=== PATIENT | male | born 1970 | race Caucasian/White ===

== ENCOUNTER 2016-11-23 23:59 | Emergency (ER) | payer MEDICAID, OTHER ==
[~2016-11-23] VITALS: Ht 170.2 cm; Wt 68.2 kg
[2016-11-24 00:54] LABS: HEMATOCRIT 48.7 % (39.2-51.8); HEMOGLOBIN 16.5 g/dL (13.7-18.0); WHITE BLOOD COUNT 6.2 x10^3/uL (3.4-10)
[2016-11-24] MEDS ORDERED: SODIUM CHLORIDE 0.9% 1,000ML IVBOLUS ONE (01:00)
[2016-11-24] MEDS ORDERED: SODIUM CHLORIDE FLUSH 10ML SYR IVF ONE (01:00)
[2016-11-24] MEDS ORDERED: MORPHINE SULFATE 4 MG/ML, 1ML IVPush PRN (01:00)
[2016-11-24] MEDS ORDERED: ONDANSETRON 2MG/ML, 2ML IVPush ONE (01:00)
[2016-11-24 01:04] LABS: ASPARTATE AMINO TRANSFERASE 53 U/L (15-37); BLOOD UREA NITROGEN 6 mg/dL (7-18)
[2016-11-24] MEDS ORDERED: MORPHINE SULFATE 4 MG/ML, 1ML ONE (01:13)
[2016-11-24] MEDS ORDERED: ONDANSETRON 2MG/ML, 2ML ONE (01:13)
[2016-11-24 01:19] VITALS: BP 138/89
[2016-11-24] MEDS ORDERED: OMNIPAQUE 350 MG/ML, 100ML BOTTLE ONE (01:33)
== END 2016-11-24 03:00 | disposition home or self-care (01) ==
LOC: ED 23:59
DX: K59.00 Constipation, unspecified (principal); K29.20 Alcoholic gastritis without bleeding; F17.210 Nicotine dependence, cigarettes, uncomplicated; K70.10 Alcoholic hepatitis without ascites; K76.0 Fatty (change of) liver, not elsewhere classified; F10.20 Alcohol dependence, uncomplicated; I10 Essential (primary) hypertension
CPT/HCPCS: 36415; 71010; 74177; 80053; 80307; 81001; 83690; 85025; 96361; 96374; 96375; 99285; J2405; J7030; Q9967

== ENCOUNTER 2017-04-03 13:14 | Emergency (ER) | payer MEDICAID, OTHER ==
[~2017-04-03] VITALS: Ht 167.6 cm; Wt 69.1 kg
[2017-04-03 13:18] VITALS: BP 149/88
[2017-04-03] MEDS ORDERED: KETOROLAC 30 MG/1 ML ONE (14:18)
[2017-04-03] MEDS ORDERED: KETOROLAC 30 MG/1 ML IM ONE (14:30)
[2017-04-03] MEDS ORDERED: DIAZEPAM 5 MG TABLET ONE (14:58)
[2017-04-03] MEDS ORDERED: DIAZEPAM 5 MG TABLET PO ONE (15:00)
== END 2017-04-03 15:33 | disposition home or self-care (01) ==
LOC: ED 14:00
DX: S46.811A Strain of other muscles, fascia and tendons at shoulder and upper arm level, right arm, initial encounter (principal); S16.1XXA Strain of muscle, fascia and tendon at neck level, initial encounter; M75.91 Shoulder lesion, unspecified, right shoulder; X58.XXXA Exposure to other specified factors, initial encounter; Y93.89 Activity, other specified; Y92.89 Other specified places as the place of occurrence of the external cause; Y99.8 Other external cause status
CPT/HCPCS: 72125; 73030; 93005; 96372; 99284; J1885

== ENCOUNTER 2017-06-13 13:46 | Emergency (ER) | payer MEDICAID ==
[~2017-06-13] VITALS: Ht 160 cm; Wt 69.0 kg
[~2017-06-13 13:46] MED LIST: NAPR250T6 PO
[2017-06-13 14:57] LABS: BASOPHILS # (AUTO) 0.03 x10^3/uL (0-0.1); BASOPHILS % (AUTO) 1 % (0-1); EOSINOPHILS # (AUTO) 0.01 x10^3/uL (0-0.4); EOSINOPHILS % (AUTO) 0 % (1-7); LYMPHOCYTES # (AUTO) 2.35 x10^3/uL (1-3.4); LYMPHOCYTES % (AUTO) 34 % (22-44); MD NO; MEAN CORPUSCULAR HEMOGLOBIN 28.1 pg (27.5-34.5); MEAN CORPUSCULAR HGB CONC 33.8 g/dL (33.2-36.2); MEAN CORPUSCULAR VOLUME 83.2 fL (81-97); MEAN PLATELET VOLUME 10.2 fL (7.4-10.4); MONOCYTES # (AUTO) 0.43 x10^3/uL (0.2-0.8); MONOCYTES % (AUTO) 6 % (2-9); NEUTROPHILS # (AUTO) 4.05 x10^3/uL (1.8-6.8); NEUTROPHILS % (AUTO) 59 % (42-75); PLATELET COUNT 121 x10^3/uL (130-400); RED BLOOD COUNT 5.69 x10^6/uL (4.38-5.82); RED CELL DISTRIBUTION WIDTH 12.3 % (9.4-14.8)
[2017-06-13 15:08] LABS: ANION GAP 13 mmol/L (5-15); CALCIUM 8.5 mg/dL (8.5-10.1); CHLORIDE 100 mmol/L (98-107)
[2017-06-13 15:11] LABS: ALANINE AMINOTRANSFERASE 69 U/L (12-78); ALKALINE PHOSPHATASE 91 U/L (45-117); BILIRUBIN,TOTAL 1.1 mg/dL (0.2-1.0); CREATININE 0.94 mg/dL (0.7-1.3); TOTAL PROTEIN 7.9 g/dL (6.4-8.2)
[2017-06-13] MEDS ORDERED: THIAMINE 100MG TABLET PO ONE (16:00)
[2017-06-13] MEDS ORDERED: FAMOTIDINE 20 MG/2 ML IVP ONE (16:00)
[2017-06-13] MEDS ORDERED: MAALOX/HYOSCYAMINE/LIDOCAINE 45 ML BTL PO ONE (16:00)
[2017-06-13] MEDS ORDERED: SODIUM CHLORIDE 0.9% 1,000ML IVBOLUS ONE (16:00)
[2017-06-13] MEDS ORDERED: SODIUM CHLORIDE FLUSH 10ML SYR IVF ONE (16:00)
[2017-06-13 16:06] LABS: MICROSCOPIC AUTO
[2017-06-13] MEDS ORDERED: FAMOTIDINE 20 MG/2 ML ONE (16:08)
[2017-06-13] MEDS ORDERED: THIAMINE 100MG TABLET ONE (16:08)
[2017-06-13] MEDS ORDERED: MAALOX/HYOSCYAMINE/LIDOCAINE 45 ML BTL ONE (16:08)
[2017-06-13 16:13] LABS: CULTURE INDICATED? YES
[2017-06-13 18:28] VITALS: BP 145/89
[2017-06-13] MEDS ORDERED: ONDANSETRON ODT 4 MG ONE (18:31)
[2017-06-13] MEDS ORDERED: ONDANSETRON ODT 4 MG PO ONE (19:00)
== END 2017-06-13 18:53 | disposition home or self-care (01) ==
LOC: ED 16:52
DX: K86.0 Alcohol-induced chronic pancreatitis (principal); E11.65 Type 2 diabetes mellitus with hyperglycemia; F10.229 Alcohol dependence with intoxication, unspecified; I10 Essential (primary) hypertension; F17.200 Nicotine dependence, unspecified, uncomplicated; Z91.14 Patient's other noncompliance with medication regimen
CPT/HCPCS: 36415; 80053; 81001; 83690; 85025; 87086; 93005; 96374; 99285; J7030; Q0162; S0028

== ENCOUNTER 2017-12-28 06:20 | Emergency (ER) | payer MEDICAID ==
[~2017-12-28] VITALS: Ht 157.5 cm; Wt 76.4 kg
[2017-12-28 06:27] VITALS: BP 134/91
== END 2017-12-28 06:41 | disposition home or self-care (01) ==
LOC: ED 06:30
DX: T63.441A Toxic effect of venom of bees, accidental (unintentional), initial encounter (principal); E11.9 Type 2 diabetes mellitus without complications; F17.200 Nicotine dependence, unspecified, uncomplicated
CPT/HCPCS: 99283

== ENCOUNTER 2018-01-13 05:13 | Emergency (ER) | payer MEDICAID ==
[~2018-01-13] VITALS: Ht 165.1 cm; Wt 61.0 kg
[2018-01-13] MEDS ORDERED: ONDANSETRON 2MG/ML, 2ML ONE (05:57)
[2018-01-13] MEDS ORDERED: MORPHINE SULFATE 4 MG/ML, 1ML ONE (05:58)
[2018-01-13] MEDS ORDERED: ONDANSETRON 2MG/ML, 2ML IVPush ONE (06:00)
[2018-01-13] MEDS ORDERED: MORPHINE SULFATE 4 MG/ML, 1ML IVPush PRN (06:00)
[2018-01-13] MEDS ORDERED: SODIUM CHLORIDE FLUSH 10ML SYR IVF ONE (06:00)
[2018-01-13 06:01] LABS: BASOPHILS # (AUTO) 0.07 x10^3/uL (0-0.1); BASOPHILS % (AUTO) 1 % (0-1); EOSINOPHILS # (AUTO) 0.01 x10^3/uL (0-0.4); EOSINOPHILS % (AUTO) 0 % (1-7); LYMPHOCYTES # (AUTO) 0.98 x10^3/uL (1-3.4); LYMPHOCYTES % (AUTO) 14 % (22-44); MD NO; MEAN CORPUSCULAR HEMOGLOBIN 30.9 pg (27.5-34.5); MEAN CORPUSCULAR HGB CONC 33.7 g/dL (33.2-36.2); MEAN CORPUSCULAR VOLUME 91.8 fL (81-97); MEAN PLATELET VOLUME 10.9 fL (7.4-10.4); MONOCYTES # (AUTO) 0.54 x10^3/uL (0.2-0.8); MONOCYTES % (AUTO) 8 % (2-9); NEUTROPHILS # (AUTO) 5.64 x10^3/uL (1.8-6.8); NEUTROPHILS % (AUTO) 78 % (42-75); PLATELET COUNT 117 x10^3/uL (130-400); RED CELL DISTRIBUTION WIDTH 12.6 % (9.4-14.8)
[2018-01-13 06:13] LABS: ALBUMIN 3.3 g/dL (3.4-5.0); ANION GAP 10 mmol/L (5-15); CALCIUM 8.9 mg/dL (8.5-10.1); CHLORIDE 104 mmol/L (98-107); CREATININE 0.62 mg/dL (0.7-1.3)
[2018-01-13 06:14] LABS: MICROSCOPIC INDICATED
[2018-01-13 06:15] LABS: CULTURE INDICATED? YES
[2018-01-13] MEDS ORDERED: OMNIPAQUE 350 MG/ML, 100ML BOTTLE ONE (06:44)
[2018-01-13 06:51] LABS: ALBUMIN 3.2 g/dL (3.4-5.0); BILIRUBIN, DIRECT 0.5 mg/dL (0.1-0.2)
[2018-01-13 06:53] LABS: BILIRUBIN,INDIRECT 0.5 mg/dL (0.0-2.0); TOTAL PROTEIN 7.7 g/dL (6.4-8.2)
[2018-01-13 08:07] VITALS: BP 145/78
== END 2018-01-13 08:09 | disposition home or self-care (01) ==
LOC: ED 06:20
DX: K70.31 Alcoholic cirrhosis of liver with ascites (principal); R10.30 Lower abdominal pain, unspecified; E11.9 Type 2 diabetes mellitus without complications; I10 Essential (primary) hypertension
CPT/HCPCS: 36415; 74177; 80048; 80076; 81001; 82040; 83690; 85025; 87086; 96374; 96375; 99285; J2405; Q9967

== ENCOUNTER 2018-02-13 15:37 | Emergency (ER) | payer MEDICAID ==
[~2018-02-13] VITALS: Ht 167.6 cm; Wt 67.5 kg
[2018-02-13 16:56] LABS: BASOPHILS # (AUTO) 0.11 x10^3/uL (0-0.1); BASOPHILS % (AUTO) 1 % (0-1); EOSINOPHILS # (AUTO) 0.14 x10^3/uL (0-0.4); EOSINOPHILS % (AUTO) 1 % (1-7); LYMPHOCYTES # (AUTO) 1.94 x10^3/uL (1-3.4); LYMPHOCYTES % (AUTO) 19 % (22-44); MD NO; MEAN CORPUSCULAR HEMOGLOBIN 30.1 pg (27.5-34.5); MEAN CORPUSCULAR HGB CONC 33.4 g/dL (33.2-36.2); MEAN CORPUSCULAR VOLUME 90.2 fL (81-97); MEAN PLATELET VOLUME 11.6 fL (7.4-10.4); MONOCYTES # (AUTO) 0.77 x10^3/uL (0.2-0.8); MONOCYTES % (AUTO) 7 % (2-9); NEUTROPHILS # (AUTO) 7.46 x10^3/uL (1.8-6.8); NEUTROPHILS % (AUTO) 72 % (42-75); PLATELET COUNT 177 x10^3/uL (130-400); RED BLOOD COUNT 5.05 x10^6/uL (4.38-5.82)
[2018-02-13 16:58] LABS: MICROSCOPIC NOT IND
[2018-02-13 17:01] LABS: CULTURE INDICATED? NO
[2018-02-13 17:09] LABS: ALBUMIN 3.4 g/dL (3.4-5.0); ANION GAP 8 mmol/L (5-15); CALCIUM 9.1 mg/dL (8.5-10.1); CHLORIDE 106 mmol/L (98-107)
[2018-02-13 17:10] LABS: CREATININE 0.93 mg/dL (0.7-1.3)
[2018-02-13 17:12] VITALS: BP 135/91
[2018-02-13] MEDS ORDERED: CEFTRIAXONE 1,000 MG IM ONE (17:30)
[2018-02-13] MEDS ORDERED: AZITHROMYCIN 500 MG TABLET PO ONE (17:30)
[2018-02-13] MEDS ORDERED: CEFTRIAXONE 250 MG ONE (17:33)
[2018-02-13] MEDS ORDERED: AZITHROMYCIN 500 MG TABLET ONE (17:33)
== END 2018-02-13 17:47 | disposition home or self-care (01) ==
LOC: ED 17:15
DX: N34.2 Other urethritis (principal); M46.1 Sacroiliitis, not elsewhere classified; E11.9 Type 2 diabetes mellitus without complications; Z87.891 Personal history of nicotine dependence
CPT/HCPCS: 36415; 74176; 80048; 81003; 82040; 85025; 87491; 87591; 96372; 99284; J0696

== ENCOUNTER 2018-08-03 11:53 | Emergency (ER) | payer SELFPAY ==
[~2018-08-03] VITALS: Ht 165.1 cm; Wt 64.5 kg
--- NOTE | 2018-08-03 12:56 | NUR ---
[employer]: PT TO ROOM FROM [facility], GAIT SLOW AND STEADY WITH ROLLING WALKER
[2018-08-03 13:01] LABS: ALBUMIN 4.2 g/dL (3.4-5.0); ANION GAP 12 mmol/L (5-15); CALCIUM 9.3 mg/dL (8.5-10.1); CHLORIDE 99 mmol/L (98-107)
[2018-08-03 13:05] LABS: ALANINE AMINOTRANSFERASE 145 U/L (12-78); ALKALINE PHOSPHATASE 165 U/L (45-117); BASOPHILS # (AUTO) 0.02 x10^3/uL (0-0.1); BASOPHILS % (AUTO) 1 % (0-1); BILIRUBIN,TOTAL 1.1 mg/dL (0.2-1.0); EOSINOPHILS % (AUTO) 0 % (1-7); LYMPHOCYTES # (AUTO) 1.58 x10^3/uL (1-3.4); LYMPHOCYTES % (AUTO) 33 % (22-44); MD SCAN; MEAN CORPUSCULAR HEMOGLOBIN 29.7 pg (27.5-34.5); MEAN CORPUSCULAR HGB CONC 33.6 g/dL (33.2-36.2); MEAN CORPUSCULAR VOLUME 88.5 fL (81-97); MEAN PLATELET VOLUME 11.4 fL (7.4-10.4); MONOCYTES # (AUTO) 0.34 x10^3/uL (0.2-0.8); MONOCYTES % (AUTO) 7 % (2-9); NEUTROPHILS # (AUTO) 2.84 x10^3/uL (1.8-6.8); NEUTROPHILS % (AUTO) 59 % (42-75); PLATELET COUNT 77 x10^3/uL (130-400); RED BLOOD COUNT 5.42 x10^6/uL (4.38-5.82); RED CELL DISTRIBUTION WIDTH 12.9 % (9.4-14.8); TOTAL PROTEIN 8.6 g/dL (6.4-8.2)
[2018-08-03] MEDS ORDERED: IBUPROFEN 200 MG TABLET PO ONE (14:30)
[2018-08-03] MEDS ORDERED: IBUPROFEN 600 MG TABLET ONE (14:32)
--- NOTE | 2018-08-03 14:36 | NUR ---
PT'S CHART UP FOR RECHECK
[2018-08-03] MEDS ORDERED: INSULIN REGULAR 100 UNITS/ML, 3ML VIAL SQ-INSULIN ONE (14:38)
[2018-08-03] MEDS ORDERED: INSULIN SINGLE DOSE, ER SQ-INSULIN ONE (14:50)
[2018-08-03 16:01] VITALS: BP 125/89
== END 2018-08-03 16:03 | disposition home or self-care (01) ==
LOC: ED 14:41
DX: K85.90 Acute pancreatitis without necrosis or infection, unspecified (principal); R51 Headache; I10 Essential (primary) hypertension; E11.9 Type 2 diabetes mellitus without complications; F17.200 Nicotine dependence, unspecified, uncomplicated
CPT/HCPCS: 36415; 71045; 80053; 82962; 83690; 85025; 96372; 99284

== ENCOUNTER 2018-08-04 05:42 | Emergency (ER) | payer SELFPAY ==
[~2018-08-04] VITALS: Ht 170.2 cm; Wt 64.3 kg
--- NOTE | 2018-08-04 06:00 | NUR ---
first contact with pt. pt here for fast heart beat that started yesterday. Pt says he has some pain non radiating in center of chest. pt says pain is 9/10. pt says pain is causing nausea and he vomited. Pt denies and previous heart issues. pt's aox4. resps even and unlabored. all monitors in place. call light within reach. sinus tachy on conveyor monitor without ectopy rate 110's at this time. awaiting edmd assessment at this time.
--- NOTE | 2018-08-04 06:21 | NUR ---
cxr in room
[2018-08-04] MEDS ORDERED: SODIUM CHLORIDE 0.9% 1,000ML IVBOLUS ONE (06:30)
[2018-08-04] MEDS ORDERED: LORazepam 2 MG/ML, 1ML IVPush ONE (06:30)
[2018-08-04] MEDS ORDERED: SODIUM CHLORIDE FLUSH 10ML SYR IVF ONE (06:30)
[2018-08-04] MEDS ORDERED: ONDANSETRON 2MG/ML, 2ML IVPush ONE (06:30)
[2018-08-04] MEDS ORDERED: ONDANSETRON 2MG/ML, 2ML ONE (06:47)
[2018-08-04] MEDS ORDERED: LORazepam 2 MG/ML, 1ML ONE (06:48)
--- NOTE | 2018-08-04 06:57 | NUR ---
pt medicated per emar. pt tolerated well. pt's aox4. resps even and unlabored.
--- NOTE | 2018-08-04 06:57 | NUR ---
report given to cherise shanks.
--- NOTE | 2018-08-04 06:58 | NUR ---
bedside report from RN Helen, pt care assumed at this time. pt in bed, awaiting labs & dispo, no needs at this time, call light in reach, [facility].
[2018-08-04 07:09] LABS: ALANINE AMINOTRANSFERASE 134 U/L (12-78); ALBUMIN 4.4 g/dL (3.4-5.0); ANION GAP 10 mmol/L (5-15); CALCIUM 9.1 mg/dL (8.5-10.1); CHLORIDE 98 mmol/L (98-107); CREATININE 0.83 mg/dL (0.7-1.3)
[2018-08-04 07:11] LABS: INTERNATIONAL NORMALIZED RATIO 1.06 (0.93-1.1); PROTHROMBIN TIME 11.1 Seconds (9.6-11.5)
[2018-08-04 07:13] LABS: ALKALINE PHOSPHATASE 154 U/L (45-117); BILIRUBIN,TOTAL 2.2 mg/dL (0.2-1.0); TOTAL PROTEIN 8.6 g/dL (6.4-8.2); TROPONIN I < 0.015 ng/mL (0.000-0.045)
[2018-08-04 07:19] LABS: MEAN CORPUSCULAR HEMOGLOBIN 29.5 pg (27.5-34.5); MEAN CORPUSCULAR HGB CONC 33.5 g/dL (33.2-36.2); MEAN CORPUSCULAR VOLUME 88.1 fL (81-97); MEAN PLATELET VOLUME 11.9 fL (7.4-10.4); PLATELET COUNT 67 x10^3/uL (130-400); RED BLOOD COUNT 5.53 x10^6/uL (4.38-5.82)
[2018-08-04 07:24] LABS: BASOPHILS # (AUTO) 0.02 x10^3/uL (0-0.1); BASOPHILS % (AUTO) 0 % (0-1); EOSINOPHILS # (AUTO) 0.01 x10^3/uL (0-0.4); EOSINOPHILS % (AUTO) 0 % (1-7); LYMPHOCYTES # (AUTO) 0.83 x10^3/uL (1-3.4); LYMPHOCYTES % (AUTO) 20 % (22-44); MD SCAN; MONOCYTES # (AUTO) 0.34 x10^3/uL (0.2-0.8); MONOCYTES % (AUTO) 8 % (2-9); NEUTROPHILS # (AUTO) 3.01 x10^3/uL (1.8-6.8); NEUTROPHILS % (AUTO) 72 % (42-75)
[2018-08-04] MEDS ORDERED: DEXAMETHASONE 4 MG TABLET ONE (07:27)
[2018-08-04] MEDS ORDERED: DIPHENHYDRAMINE 12.5MG/5ML, 10ML UDC ONE (07:27)
[2018-08-04 07:37] LABS: ACETONE, SERUM Negative (Negative)
[2018-08-04 07:56] VITALS: BP 151/95
== END 2018-08-04 07:58 | disposition home or self-care (01) ==
LOC: ED 06:14
DX: K70.0 Alcoholic fatty liver (principal); K70.10 Alcoholic hepatitis without ascites; E86.0 Dehydration; I10 Essential (primary) hypertension; E11.9 Type 2 diabetes mellitus without complications
CPT/HCPCS: 36415; 71045; 80053; 82010; 83735; 84484; 85025; 85610; 93005; 96361; 96374; 96375; 99284; J2060; J2405; J7030

== ENCOUNTER 2018-08-08 08:22 | Emergency (ER) | payer SELFPAY ==
[~2018-08-08] VITALS: Ht 165.1 cm; Wt 64.5 kg
[2018-08-08 08:32] VITALS: BP 129/79
== END 2018-08-08 09:22 | disposition home or self-care (01) ==
LOC: ED 09:10
DX: Z00.00 Encounter for general adult medical examination without abnormal findings (principal); Z72.9 Problem related to lifestyle, unspecified; E11.9 Type 2 diabetes mellitus without complications; I10 Essential (primary) hypertension
CPT/HCPCS: 99281